=== PATIENT | female | born 1945 | race African-American/Black ===

== ENCOUNTER 2023-03-15 14:20 | Emergency (ER) | payer OTHER ==
[~2023-03-15] VITALS: Ht 167.6 cm; Wt 75.0 kg
[2023-03-15 14:24] VITALS: BP 140/78; PULSE 77; RESP 16; TEMP 98; O2SAT 96
[2023-03-15 15:48] LABS: BASOPHILS % 1.3 % (0.0-2.0); EOSINOPHILS % 1.6 % (0.0-5.0); HEMATOCRIT. 32.1 % (36.0-48.0); HEMOGLOBIN. 10.8 g/dL (12.0-16.0); MEAN CORPUSCULAR HEMOGLOBIN 28.2 pg (28.0-32.0); MEAN CORPUSCULAR VOLUME 84.1 fL (81.0-99.0); MEAN PLATELET VOLUME 6.4 fl (7.4-10.4); MONOCYTES % 8.3 % (2.0-8.0); NEUTROPHILS % 57.8 % (40.0-76.0); PLATELET 316 x1000/uL (130-400); RED BLOOD CELL COUNT 3.82 mill/uL (4.2-5.4)
[2023-03-15 15:51] LABS: CHLORIDE 105 mEq/L (98-107)
== END 2023-03-15 19:43 | disposition home or self-care (01) ==
LOC: ER 14:20
DX: R53.1 Weakness (principal); R11.0 Nausea; R19.7 Diarrhea, unspecified; E78.00 Pure hypercholesterolemia, unspecified; Z88.5 Allergy status to narcotic agent; Z20.822 Contact with and (suspected) exposure to COVID-19
CPT/HCPCS: 99285; 71045; 87426; 80053; 83880; 83690; 85025; 84484; 36415; 93005; C9803